=== PATIENT | female | born 1940 | race Two or more races ===

== ENCOUNTER 2021-07-04 12:15 | Inpatient (IN) | payer OTHER ==
[~2021-07-04] VITALS: Ht 152.4 cm; Wt 5.0 kg
[2021-07-04] MEDS ORDERED: LISINOPRIL40 MG PO (12:26)
[2021-07-04] MEDS ORDERED: SIMVASTATIN5 MG PO (12:27)
[2021-07-05] MEDS ORDERED: LUMIGAN2.5 M1 (10:50)
[2021-07-05] MEDS ORDERED: OMEPRAZOLE20 MG (10:50)
[2021-07-05] MEDS ORDERED: PANTOPRAZOLE SO40 MG (10:50)
[2021-07-08] MEDS ORDERED: CIPRO500 MG PO (12:42)
[2021-07-08] MEDS ORDERED: INTESTINEX680 M1 PO (12:43)
[2021-07-08] MEDS ORDERED: METRONIDAZOLE500 MG PO (12:43)
== END 2021-07-08 14:15 | disposition home or self-care (01) | DRG 392 ==
LOC: ER 12:15 → SURG 23:42 → MEDJ 07-06 14:24
PROVIDERS: ADMIT Internal Medicine; ATTEND Internal Medicine
PROC: BW21YZZ Computerized Tomography (CT Scan) of Abdomen and Pelvis using Other Contrast (ICD-10-PCS; principal; 2021-07-04)
DX: K57.32 Diverticulitis of large intestine without perforation or abscess without bleeding (principal); N39.0 Urinary tract infection, site not specified; D72.828 Other elevated white blood cell count; M25.562 Pain in left knee; I10 Essential (primary) hypertension; K21.9 Gastro-esophageal reflux disease without esophagitis